=== PATIENT | male | born 1945 | race Caucasian/White ===

== ENCOUNTER 2020-08-10 07:37 | Outpatient (CLI) | payer MEDICARE, SELFPAY ==
--- NOTE | ~2020-08-10 | US_ITS ---
EXAMINATION: US abdomen complete EXAM DATE: 08/10/2020 13:46 INDICATION: Secondary, cytopenia. TECHNIQUE: Multiple grayscale and Doppler images of the complete abdomen were obtained (by a technolo ashley who performed the scan) and subsequently reviewed. Comparison is made to prior examination from 05/08/2013. FINDINGS: The abdominal aorta is normal in caliber. Visualized portion IVC is patent. The pancreatic head a nd body are normal in appearance. The pancreatic tail is not visualized. The liver has normal echogenicity and contour. There is 6 mm liver cyst. There is no evidence of in trahepatic biliary duct dilation. Portal venous flow was seen in the hepatopedal, normal direction a nd has normal Doppler waveform. Common bile duct measures 3 mm, which is normal. The gallbladder fossa is unremarkable. Right kidney: There is normal contour and echogenicity. It measures 9.9 x 5.9 x 4.5 centimeters. The re is renal cortical thinning. There are no focal renal lesions identified. There is no hydronephr osis. Left kidney: There is normal contour and echogenicity. It measures 11.8 x 4.5 x 5.2 centimeters. T here are no focal renal lesions identified. There is no hydronephrosis. The spleen measures 11.6 centimeters and is morphologically normal. IMPRESSION: 1. Unremarkable complete abdominal ultrasound exam. 2. Normal spleen size. Reviewed, dictated and finalized at location A.
== END 2020-08-10 07:38 | disposition home or self-care (01) ==
PROVIDERS: PCP Family Medicine; Visit Provider Internal Medicine Hematology & Oncology
DX: D69.59 Other secondary thrombocytopenia (principal)
CPT/HCPCS: 76700

== ENCOUNTER 2020-11-19 13:47 | Outpatient (CLI) | payer MEDICARE, SELFPAY ==
[2020-11-19 14:08] LABS: Basophils Percent Auto 0.5 % (0.2-1.2); Eosinophils Absolute Auto 0.1 K/mm3 (0-0.3); Hematocrit 45.1 % (42.0-52.0); Hemoglobin 15.6 g/dL (14.0-18.0); Immature Granulocyte Absolute 0.01 K/mm3 (0.00-0.031); Immature Granulocyte Percent A 0.2 % (0-0.5); Immature Platelet Fraction Pct 1.9 % (0.9-11.2); Lymphocytes Absolute Auto 0.74 K/mm3 (0.9-3.2); Lymphocytes Percent Auto 13.4 % (18.3-44.2); Mean Corpuscular HGB Conc 34.6 g/dl (32-36); Mean Corpuscular Hemoglobin 31.4 pg (26-34); Mean Corpuscular Volume 90.7 fl (80-100); Monocytes Absolute Auto 0.4 K/mm3 (0.1-0.6); Monocytes Percent Auto 6.3 % (2.6-8.5); Neutrophils Absolute Auto 4.3 K/mm3 (1.3-6.7); Neutrophils Percent Auto 77.6 % (45.5-73.1); Platelet Count Result 148 k/mm3 (150-375); Red Blood Count 4.97 M/mm3 (4.6-6.20); Red Cell Distribution Width 12.3 % (11.5-14.5); White Blood Count 5.5 K/mm3 (4.5-10.0)
[2020-11-19 14:10] LABS: Blood Urea Nitrogen 19 mg/dL (8-26); Carbon Dioxide 27 mmol/L (22-30); Chloride 101 mmol/L (98-109); Estimated Glomerular Filt Rate > 60; Glucose 92 mg/dL (70-105); Potassium 4.2 mmol/L (3.5-4.9); Sodium 142 mmol/L (138-146)
[2020-11-19 19:22] LABS: Alanine Aminotransferase 17 U/L (4-50); Albumin Level 3.9 g/dL (3.5-5.1); Alkaline Phosphatase 71 U/L (38-126); Anion Gap 6 mmol/L (8-16); Aspartate Amino Transferase 25 U/L (17-59); Bilirubin,Total 1.6 mg/dL (0.2-1.3); Blood Urea Nitrogen 18 mg/dL (9-20); Calcium 9.1 mg/dL (8.4-10.2); Carbon Dioxide 30 mmol/L (22-30); Chloride 100 mmol/L (98-107); Estimated Glomerular Filt Rate > 60; Glucose 94 mg/dL (65-110); Potassium 4.2 mmol/L (3.4-5.0); Sodium 136 mmol/L (137-145)
== END 2020-11-19 13:48 | disposition home or self-care (01) ==
PROVIDERS: PCP Family Medicine; Visit Provider Internal Medicine Hematology & Oncology
DX: D69.59 Other secondary thrombocytopenia (principal)
CPT/HCPCS: 36415; 80048; 80053; 85025; 85055

== ENCOUNTER 2021-03-20 10:47 | Outpatient (CLI) | payer MEDICARE, SELFPAY ==
[2021-03-20 13:43] LABS: Influenza Control Valid (Valid); SARS-CoV-2 Ag Negative (Negative)
== END 2021-03-20 10:48 | disposition home or self-care (01) ==
LOC: CHSLAB 10:50
PROVIDERS: PCP Family Medicine; Visit Provider Family Medicine
DX: R05.9 Cough, unspecified (principal); Z20.822 Contact with and (suspected) exposure to COVID-19
CPT/HCPCS: 87426; 87804; C9803

== ENCOUNTER 2021-06-05 12:34 | Outpatient (CLI) | payer MEDICARE, SELFPAY ==
--- NOTE | ~2021-06-05 | CT_ITS ---
EXAMINATION:CT lung screening DATE: 06/05/2021 13:00 INDICATION: Personal history of nicotine dependence. TECHNIQUE: Computed tomography (CT) of the chest was performed without intravenous contrast. Automate d exposure control and iterative reconstruction technique were employed. The dose-length product (DLP ) was 185.77 mGy-cm. COMPARISON: CT abdomen 05/28/2010 FINDINGS: There is moderate emphysema. There is scarring at the lung apices. There is mild scarring i n right middle lobe. Calcified bilateral lung nodules and calcified hilar and mediastinal lymph nodes are consistent with old granulomatous disease. There is a 4 mm nodule in left upper lobe. There is a 2 mm nodule in left upper lobe. No pleural effusion. The heart size is normal. There are coronary ar olga calcifications. No pericardial effusion. There are changes of coronary artery bypass grafting. C alcifications in the spleen are consistent with old granulomatous disease. There are changes of deisi cystectomy. There is mild thoracic spondylosis. IMPRESSION: 1. Lung-RADS category 2: Benign appearance or behavior. Continue annual screening with noncontrast lo w-dose chest CT in 12 months. Reviewed, dictated and finalized at location A. L [employer] IMPRESSION: 1. Lung-RADS category 2: Benign appearance or behavior. Continue annual screeni ng with noncontrast low-dose chest CT in 12 months.
--- NOTE | 2021-06-08 10:57 | P.PCNPFT_ITS ---
PFT Procedure Performed PFT Procedure Performed Spirometry with Pre/Post Bronchodilator Plethysmography (Lung Vol) Diffusing Cap (DLCO) Flow Vol Loop PFT Interpretation Lung volumes were measured with the body plethysmography method. The elevated FRC and RV are indicative of air trapping. Spirometry showed diminished e xpiratory flow rates and a diminished FEV1 to FVC ratio of 29%, indicative of severe obstructive airway disease. Following administration of a bronchodilator there was no significant increase in expiratory flow rates. Lung diffusion capacity severely reduced at 39% predicted. The flow volume loop is consistent with very severe emphysema. Impression: Very severe obstructive airway disease with evidence of air trapping and no response to bronchodilators on this testing. Severely reduced lung diffusion capacity.
--- NOTE | 2021-06-08 11:01 | WPDSIXMINUTE ---
Six Minute Walk Procedure Procedure Performed Pulmonary Stress Test (6 min walk) Six Minute Walk This 6 minute walk test was carried out with the patient breathing supplemental oxygen at 2 liters/minute. The pre walk oxyhemoglobin saturation was 95%. The patient walked over 182 m with no stops recorded during testing. The oxyhemoglobin saturation remained over 92% during the walk. Impression: No evidence of oxyhemoglobin desaturation on supplemental oxygen at 2 liters/minute.
== END 2021-06-05 12:35 | disposition home or self-care (01) ==
PROVIDERS: PCP Family Medicine; Visit Provider Internal Medicine Pulmonary Disease
DX: Z12.2 Encounter for screening for malignant neoplasm of respiratory organs (principal); Z87.891 Personal history of nicotine dependence; J43.9 Emphysema, unspecified; J43.8 Other emphysema
CPT/HCPCS: 71271; 94060; 94618; 94726; 94729